=== PATIENT | female | born 2000 | race Hispanic/Latino ===

== ENCOUNTER 2022-11-04 18:28 | Emergency (ER) | payer SELFPAY ==
[~2022-11-04] VITALS: Ht 167.6 cm; Wt 73.5 kg
[2022-11-04] MEDS ORDERED: MOMETASONE FURO15 G2 TP (18:53)
== END 2022-11-04 19:02 | disposition home or self-care (01) ==
LOC: FSED 19:01
DX: L74.0 Miliaria rubra (principal); R20.2 Paresthesia of skin; F32.A Depression, unspecified
CPT/HCPCS: 99282